=== PATIENT | male | born 1960 | race Caucasian/White ===

== ENCOUNTER → 2023-06-02 12:20 | Outpatient (CLI) | payer OTHER, SELFPAY ==
--- NOTE | 2023-06-02 12:23 | DI.RAD.S_ITS ---
PROCEDURE: XR FOOT RT MIN 3V INDICATIONS: Right foot pain TECHNIQUE: 3 views of the foot were acquired. COMPARISON: None. FINDINGS: Bones: No acute fractures or dislocations. No suspicious bony lesions. Degenerative changes of the right 1st metatarsophalangeal joint. Soft tissues: No tibiotalar joint effusion. Achilles tendon appears normal. IMPRESSION: Right foot without acute fracture or dislocation. 1st metatarsophalangeal joint degenerative changes. If there are persistent symptoms or clinical suspicion for pathology, then repeat radiographs or advanced imaging (CT or MRI) may be considered for further evaluation. Dictated by: Nino Nagy M.D. on 06/02/2023 at 11:56 Approved by: Nino Nagy M.D. on 06/02/2023 at 11:57
== END ==
PROVIDERS: Referring Provider Nurse Practitioner Family; Visit Provider Nurse Practitioner Family
DX: M79.671 Pain in right foot (principal)
CPT/HCPCS: 73630